=== PATIENT | female | born 1995 | race Caucasian/White ===

== ENCOUNTER 2020-04-27 10:25 | Emergency (ER) | payer SELFPAY ==
[2020-04-27 10:33] VITALS: BP 123/74; PULSE 90; RESP 16; TEMP 36.7; O2SAT 100; BMI 24.3
--- NOTE | 2020-04-27 11:02 | W.ED.FEMALGU ---
HPI - Female Genitourinary General: Chief complaint: Urogenital-Female Stated complaint: Spider Bite Time Seen by Provider: 04/27/20 10:40 Source: patient Mode of arrival: ambulatory Limitations: no limitations History of Present Illness: HPI Narrative: 25 yo female patient presents with an abscess to her right labia minor. Pt denies any drainage. pt denies any fever. Pt states this has been there aboe 4 days. Associated symptoms: Deny abdominal pain, headache(s), nausea or syncope Date of Last Menstrual Period: 04/01/20 Review of Systems Const: Denies: fever(s), chills, body aches, change in appetite, change in weight, fatigue, malaise or diaphoresis Eyes: Denies: change in vision, blurry vision, blind spots, photophobia, eye discomfort, eye discharge, eye redness, floaters or seeing flashes ENMT: Denies: throat pain, uvular edema, enlarged tonsils, odynophagia, hoarseness, mouth pain, swelling of lips/tongue, oral sores, bleeding gums, dental pain, dry mouth, ear or mastoid pain, ear discharge, change in hearing, tinnitus, disequilibrium, nasal discharge, nasal congestion, post nasal drip or sinus pain Card: Denies: syncope Resp: Denies: dyspnea, productive cough, non-productive cough, wheezing, stridor, pain on inspiration, change in phlegm color, hemoptysis or chest congestion GI: Denies: abdominal pain or nausea : Denies: flank pain, difficulty voiding, dysuria, urinary frequency, urinary urgency, urinary hesitancy or hematuria Musc: Denies: neck pain, back pain, extremity pain, extremity swelling, joint pain, joint swelling, joint redness, joint warmth or deformity Skin/Breast: Denies: rash, pruritus, erythema, new lesions, changes in skin color or dry skin Neuro: Denies: headache(s) Psych: Denies: anxiety, depression, suicidal ideation or homicidal ideation Endo: Denies: polyuria, polydipsia, tired all the time, cold intolerance, excessive sweating, flushing, hot flashes or heat intolerance Serafin/Lymph: Denies: easy bruising, easy bleeding, petechiae, purpura, enlarged lymph nodes or tender lymph nodes All/Imm: Denies: urticaria, throat swelling, tongue swelling, facial swelling, acute wheezing or itchy eyes [facility] ED Female Reproductive History: Date of last menstrual period: 04/01/20 Physical Exam Const: COMMON NORMALS: no acute distress and patient oriented x3 GENERAL APPEARANCE: cooperative, comfortable, well kempt and well developed ORIENTATION/CONSCIOUSNESS: Yes awake, Yes oriented to person, Yes oriented to place and Yes oriented to time HENMT: THROAT: no uvular edema Lymph: LYMPHATIC: no lymphadenopathy noted Resp: COMMON NORMALS: normal respiratory effort Cardio: COMMON NORMALS: regular rate and regular rhythm RATE: regular rate RHYTHM: regular rhythm GI: COMMON NORMALS: Normal to inspection, nondistended, normoactive bowel sounds present, Soft to palpation, non-tender and no masses INSPECTION: Yes normal to inspection PALPATION: Yes Soft to palpation : COMMON NORMALS: Yes no CVA tenderness and No normal appearance of the vagina (pt has an indurated area with pointing and fluctuane noted to the right lab) BLADDER/KIDNEY EXAM: Yes no CVA tenderness Back/Pelvis: COMMON NORMALS: no CVA tenderness Neuro: COMMON NORMALS: patient oriented x3, CN's II-XII intact bilaterally, moves all extremities, no focal motor deficits, no sensory deficits noted and gait normal SENSORIUM/ORIENTATION: Yes oriented to person, Yes oriented to place and Yes oriented to time Psych: COMMON NORMALS: mental status grossly normal APPEARANCE: Yes well kempt Skin: SKIN IMAGES (FEMALE): 1. 2 cm indurated area Procedures Abscess I/D Site: other (right labia minor) Side (if applicable): right Local Anesthetic: lidocaine 1% Amount of anesthesia used (mL): 4 Amount of fluid expressed (mL): 5 Irrigation: Yes Packing used?: iodoform Complications: pain Course Vital Signs: Vital signs: Vital Signs Temperature 98.0 F 04/27/20 10:33 Pulse Rate 90 04/27/20 10:33 Respiratory Rate 16 04/27/20 10:33 Blood Pressure 123/74 04/27/20 10:33 Pulse Oximetry 100 04/27/20 10:33 MDM - Female MDM Narrative: Medical decision making narrative: Pt is well appearing non toxic and in no acute distress. Pt had a 2cm indurated area with fluctuane and pointing noted please see procedure note soto incision and drainege. Pt advised to return to er in 24-48 hours for wound recheck and packing removal. I will start patient on antibiotics. Discharge Plan Discharge Patient Disposition: Home Clinical Impression: Abscess Condition: Stable Prescriptions: New Bactrim DS 800-160 mg tablet 1 tab PO BID 7 Days Qty: 14 RF: 0 Discharge Orders: Discharge Order (Routine); Ordered 04/27/20 Ordered By: Darby Tavera Referrals: James Lake MD [Primary Care Provider] - Discharge Diet: Advance as tolerated Discharge Activity: Resume usual activity Patient Instructions: Abscess Incision and Drainage (ED), Abscess (ED) Activity Restrictions/Additional Instructions: Please return to ER in 24-48 hours for wound recheck and packing removal Please take meds as prescribed Please follow wound care instructions as discussed and provided Coding Level of Care Code ED [employer] for [employer]uly Fwd Exam Comprehensive
[2020-04-27] MEDS: lidocaine 1% INJ 20 mL INTRADERMA (11:27)
== END 2020-04-27 11:28 | disposition home or self-care (01) ==
PROVIDERS: Emergency Provider Registered Nurse; PCP Family Medicine
DX: N76.4 Abscess of vulva (principal)
CPT/HCPCS: 12345; 56405; 99281; 99283

== ENCOUNTER 2020-04-28 09:30 | Emergency (ER) | payer SELFPAY ==
[2020-04-28 09:32] VITALS: BP 116/73; PULSE 111; RESP 16; TEMP 36.3; O2SAT 98; BMI 25.0
--- NOTE | 2020-04-28 09:50 | W.ED.WOUNDLC ---
HPI - Wound/Laceration General: Chief Complaint: Wound/Laceration Stated Complaint: VAGINAL ABSCESS Time Seen by Provider: 04/28/20 09:32 Source: patient Mode of arrival: ambulatory Limitations: no limitations History of Present Illness: HPI narrative: 25 yo female patient presents to er for wound recheck. Pt was seen yesterday for ascess and incision and drainage with packing placed. Pt states she feels better. pt taking antibiotics as prescribed. pt denies fever. Associated symptoms: Denies chills, fever(s), nausea or vomiting Review of Systems Const: Denies: fever(s), chills or body aches Card: Denies: chest pain Resp: Denies: dyspnea GI: Denies: abdominal pain, nausea or vomiting : Denies: flank pain, difficulty voiding or dysuria Musc: Denies: neck pain Skin/Breast: Reports: other (abscess with packing and draining purulent drainage) Psych: Denies: suicidal ideation or homicidal ideation [facility] ED Female Reproductive History: Date of last menstrual period: 04/01/20 Physical Exam Const: COMMON NORMALS: no acute distress and no limitations Resp: COMMON NORMALS: normal respiratory effort and No retractions Cardio: COMMON NORMALS: regular rate and regular rhythm RATE: regular rate RHYTHM: regular rhythm Skin: COMMON NORMALS: turgor normal NARRATIVE SKIN EXAM: Pt has packing placed in an ascess that was I&D yesterday by myself on right labia minor. This abscess looks much improved but is still draining. Pt returned sooner than 24 hours so unfortunately I will have to have her return again in 24 hours for packing removal as I feel it is too early to remove as it is still actively draining. Pt is well appearing non toxic and in no acute distress GENERAL SKIN EXAM: turgor normal Course Vital Signs: Vital signs: Vital Signs Temperature 97.3 F L 04/28/20 09:32 Pulse Rate 111 H 04/28/20 09:32 Respiratory Rate 16 04/28/20 09:32 Blood Pressure 116/73 04/28/20 09:32 Pulse Oximetry 98 04/28/20 09:32 Discharge Plan Discharge Patient Disposition: Home Clinical Impression: Encounter for wound re-check, Abscess Condition: Stable Prescriptions: No Action Bactrim DS 800-160 mg tablet 1 tab PO BID 7 Days Qty: 14 RF: 0 Discharge Orders: Discharge Order (Routine); Ordered 04/28/20 Ordered By: Darby Tavera Referrals: James Lake MD [Primary Care Provider] - Discharge Diet: Advance as tolerated Discharge Activity: Resume usual activity Activity Restrictions/Additional Instructions: As your wound is still draining, I would like to keep packing in another 24 hours. Please return for packing removal in 24 hours. Continue to take antibiotics as prescribed Please follow wound care instructions Coding Level of Care Code ED [employer] for Zluy Cyr
== END 2020-04-28 09:59 | disposition home or self-care (01) ==
LOC: ER 10:49
PROVIDERS: Emergency Provider Registered Nurse
DX: Z48.00 Encounter for change or removal of nonsurgical wound dressing (principal)
CPT/HCPCS: 12345; 99282